=== PATIENT | female | born 1950 | race Hispanic/Latino ===

== ENCOUNTER → 2023-05-23 13:09 | Outpatient (REF) | payer OTHER, SELFPAY | LOC: RAD 13:09 | PROVIDERS: ATTENDING PHYSICIAN Internal Medicine Cardiovascular Disease; FAMILY PHYSICIAN Family Medicine | DX: Z87.891 Personal history of nicotine dependence (principal) | CPT/HCPCS: 71271 ==

== ENCOUNTER → 2023-06-07 09:38 | Outpatient (REF) | payer OTHER, SELFPAY | LOC: DHCBC MAIN 09:38 | PROVIDERS: ATTENDING PHYSICIAN Internal Medicine Cardiovascular Disease; FAMILY PHYSICIAN Family Medicine | DX: R06.09 Other forms of dyspnea (principal); I34.0 Nonrheumatic mitral (valve) insufficiency; I36.1 Nonrheumatic tricuspid (valve) insufficiency; Z87.891 Personal history of nicotine dependence | CPT/HCPCS: 93306 ==

== ENCOUNTER → 2023-06-13 10:47 | Outpatient (REF) | payer OTHER, SELFPAY | LOC: DHCBC/DCA 10:47 | PROVIDERS: ATTENDING PHYSICIAN Internal Medicine Cardiovascular Disease; FAMILY PHYSICIAN Family Medicine | DX: R06.09 Other forms of dyspnea (principal); Z87.891 Personal history of nicotine dependence; M79.605 Pain in left leg | CPT/HCPCS: 78452; 93017; A9500; J2785 ==

== ENCOUNTER → 2023-06-27 08:25 | Outpatient (REF) | payer OTHER, SELFPAY | LOC: RAD 08:25 | PROVIDERS: ATTENDING PHYSICIAN Internal Medicine Cardiovascular Disease; FAMILY PHYSICIAN Family Medicine | DX: Z87.891 Personal history of nicotine dependence (principal); R09.89 Other specified symptoms and signs involving the circulatory and respiratory systems | CPT/HCPCS: 76770 ==

== ENCOUNTER → 2023-08-01 11:11 | Outpatient (REF) | payer OTHER, SELFPAY | LOC: RAD 11:11 | PROVIDERS: ATTENDING PHYSICIAN Internal Medicine Cardiovascular Disease | DX: Z87.891 Personal history of nicotine dependence (principal); M79.605 Pain in left leg | CPT/HCPCS: 93922; 93925 ==

== ENCOUNTER 2023-08-30 16:02 | Emergency (ER) | payer OTHER, SELFPAY ==
[2023-08-30 16:07] VITALS: BP 107/81
[2023-08-30 17:30] VITALS: BMI 29.0
--- NOTE | 2023-08-30 18:55 | ED.GENMED ---
History of Present Illness
General
Chief Complaint: Back Pain
Source: patient and spouse
Exam Limitations: none
Time Seen by Provider: 08/30/23 18:45
Nursing documentation reviewed up to this point in time: agreed with
Travel History
Have you had any contact with someone who has COVID-19?: No
Do you have any symptoms of coronavirus? Fever > 100 degrees, chills, cough, shortness of breath, sore throat, loss of taste or smell, muscle aches, or headache?: No
History of Present Illness
History of Present Illness:
Patient is a 73-year-old female who complains of pain throughout her upper back shoulders clavicle area. She has had this off and on for the past several yrs and has not reports she has been given multiple multiple types of medication for pain
including baclofen gabapentin meloxicam without relief. She does not have a diagnosis. She has never seen rheumatology. She denies any fever or chills. . She denies any fever or chills. Denies any rash.
Review of Systems
Review of Systems
Allergies reviewed?: Yes
All Other Systems: ROS reviewed and negative except as documented in HPI and ROS
Constitutional: Reports no symptoms; Denies fever, fatigue or chills
EENT: Reports no symptoms
Respiratory: Reports no symptoms
Cardiac: Reports no symptoms
ABD/GI: Reports no symptoms
Musculoskeletal: Reports other (back pain b/l shoulder pain )
Skin: Reports no symptoms; Denies rash
Hematologic/Lymphatic: Reports no symptoms
Psychiatric: Reports no symptoms
Phy Exam
General Physical Exam
General Presentation: no apparent distress
General age: appears stated age
General Skin: warm and dry
General Habitus: elderly
General Mental: alert
General Hydration: appears well hydrated
Cardiovascular Exam
Cardiovascular Exam: regular rate/rhythm, no murmur and normal peripheral pulses
Pulmonary Exam
Pulmonary Exam: lungs clear and no respiratory distress
Neurological Exam
Neurological Exam: alert and oriented x3
Musculoskeletal Exam
Musculoskeletal Exam: full ROM and other (Normal inspection to back no bony midline tenderness but tender throughout the muscle region of trapezius, shoulders pain with range of motion of shoulders above head no swelling or erythema to joints)
Course
Orders/Labs/Results
Orders:
Orders
08/30/23 16:09
CR Cervical Spine 4 Or 5 Vw Urgent
Comment:
Reason For Exam: pain
Thoracic Spine 3 Views CR [CR Thoracic Spine 3 Views] Urgent
Comment:
Reason For Exam: pain
08/30/23 19:08
Ketorolac [Toradol] 15 mg IV NOW STA
diazePAM [Valium Injection] 5 mg IM NOW STA
08/30/23 19:36
CRP [C-Reactive Protein] Urgent
Complete Blood Count/With Diff Urgent
Comprehensive Metabolic Panel Urgent
Sed Rate [Erythrocyte Sed Rate] Urgent
Abnormal Lab Results
08/30/23
19:36
RBC 3.91 L 10^6/uL
(4.20-5.40)
Hct 35.8 L %
(37.0-47.0)
MCH 31.7 H pg
(27.0-31.0)
Absolute Monos (auto) 0.8 H 10^3/uL
(0.1-0.6)
ESR 41 H mm/hour
(0-20)
BUN 20 H mg/dl
(7-17)
Glucose 114 H mg/dl
(70-99)
Alkaline Phosphatase 129 H U/L
(38-126)
C-Reactive Protein 17.10 H mg/L
(0.0-10.00)
08/30/23 19:36
08/30/23 19:36
Vital Signs
Initial and Last Documented VS:
Initial Vital Signs
Temp Pulse Resp BP Pulse Ox
99.6 F 69 18 107/81 97
08/30/23 16:07 08/30/23 16:07 08/30/23 16:07 08/30/23 16:07 08/30/23 16:07
Last Documented Vital Signs
Temp Pulse Resp BP Pulse Ox
99.6 F 77 18 156/68 94
08/30/23 16:07 08/30/23 21:47 08/30/23 16:07 08/30/23 21:47 08/30/23 21:47
MDM/Problems Addressed
Differential Diagnosis Includes:
not limited to: muscle/joint pain
MDM/Problems Addressed:
Patient is a 73-year-old female complains of pain throughout her body mostly in her upper back shoulders. She has been seen at times by her family doctor for this and is on baclofen and gabapentin meloxicam without relief. Patient denies any fever
or chills. She is nontoxic but she is uncomfortable there is no obvious joint swelling or erythema she has good range of motion patient was given IM Valium and IV Toradol feeling much better. Patient has a mildly elevated C-reactive protein of 17
and a sed rate of 41. case reviewed with ED physician possible polymyalgia rheumatica or other rheumatological condition she will need follow-up with rheumatology will DC on short course of steroids.
*Critical Care Note
Total Time (30-74mins, 75-104mins- exclusive of procedures): Not Applicable
ED Attending Note
-
Portions of this chart may have been created with voice recognition software.� Occasional wrong word or��sound alike� substitutions may have occurred due to the inherent limitations of voice recognition software.
Discharge Plan
Departure
Patient Disposition: Home (Routine Discharge)
Date of Disposition: 08/30/23
Time of Disposition: 21:55
Patient with high blood pressure during this ER visit?: Yes
Condition: Fair
Covid-19: Not Applicable
Discharge Problem:
muscle and joint pain
Instructions: Muscle and bone pain - Discharge instructions
Prescriptions:
New
prednisone 20 mg tablet
40 mg PO DAILY Qty: 10 0RF
No Action
meloxicam 15 mg Tablet
15 mg PO DAILY
omeprazole 40 mg Capsule,Delayed Release(Dr/Ec)
40 mg PO DAILY
gabapentin 800 mg Tablet
800 mg PO TID
baclofen 10 mg Tablet
10 mg PO BID
ezetimibe 10 mg Tablet
10 mg PO DAILY
duloxetine 30 mg Capsule,Delayed Release(Dr/Ec)
30 mg PO BID
Referrals:
Татьяна Okeefe MD [Consulting Staff] -
Luis Reyes DO [Family Provider] -
Activity Restrictions/Additional Instructions:
As discussed a prescription for steroids was sent to patient's pharmacy take as directed.
Follow-up with family doctor the next 1 -2 days as well as rheumatology. Please call tomorrow to make an appointment soon as possible return if any worsening of symptoms
Interventions
Interventions:
*Risk Screen - Suicide Last Done: 08/30/23 16:07
*General Assessment Last Done: 08/30/23 16:07
*Neglect/Abuse Screening Last Done: 08/30/23 16:07
ED- Fall Risk Assessment Last Done: 08/30/23 17:30
*ED COVID-19 Vaccine History Last Done: 08/30/23 16:07
ED-Musculoskeletal Assessment Last Done: 08/30/23 17:30
ED-Skin Assessment Last Done: 08/30/23 19:02
Discharge Date and Time
Print Language: SINHALA
[2023-08-30] MEDS: TORADOL 15 MG IV (19:35)
[2023-08-30] MEDS: VALIUM INJECTION 5 MG IM (19:35)
[2023-08-30 19:43] LABS: % Basophils 0.3 % (0-2); % Eosinophils 1.2 % (0-6); % Immature Granulocytes 0.3 % (0-0.5); % Lymphocytes 34.4 % (20.5-51.1); % Monocytes 8.4 % (1.7-9.3); % Neutrophils 55.4 % (42.2-75.2); Absolute Eosinophils 0.1 10^3/uL (0-0.7); Absolute Lymphocytes 3.2 10^3/uL (1.2-3.4); Absolute Monocytes 0.8 10^3/uL (0.1-0.6); Absolute Neutrophils 5.1 10^3/uL (1.4-6.5); Hematocrit 35.8 % (37.0-47.0); Hemoglobin 12.4 g/dL (12.0-16.0); Mean Corp Hgb Conc. 34.6 g/dL (33.0-37.0); Mean Corpuscular Hgb 31.7 pg (27.0-31.0); Mean Corpuscular Volume 91.6 fL (81.0-99.0); Nucleated Red Blood Cells % 0 %; Platelet Count 188 10^3/uL (130-400); Red Blood Cell Count 3.91 10^6/uL (4.20-5.40); Red Cell Dist. Width 12.5 % (11.5-14.5); White Blood Cell Count 9.2 10^3/uL (4.8-10.8)
[2023-08-30 19:55] LABS: ALT (SGPT) 18 U/L (0-35); AST (SGOT) 25 U/L (14-36); Albumin 4.5 g/dl (3.5-5.0); Alkaline Phosphatase 129 U/L (38-126); Blood Urea Nitrogen 20 mg/dl (7-17); Calcium 9.6 mg/dl (8.4-10.2); Carbon Dioxide 28 mmol/L (22-30); Chloride 101 mmol/L (98-107); Estimated Creatinine Clearance 73 ml/min; Glucose 114 mg/dl (70-99); Potassium 4.3 mmol/L (3.5-5.1); Sodium 138 mmol/L (135-145); Total Bilirubin 0.8 mg/dl (0.2-1.3); Total Protein 8.1 g/dl (6.3-8.2); eGFR > 60.00
[2023-08-30 20:07] LABS: Erythrocyte Sed Rate 41 mm/hour (0-20)
[2023-08-30 21:47] VITALS: BP 156/68
== END 2023-08-30 22:09 | disposition home or self-care (01) ==
LOC: EMR 16:02
PROVIDERS: Nurse Practitioner; EMERGENCY PHYSICIAN Emergency Medicine; FAMILY PHYSICIAN Family Medicine
DX: M25.50 Pain in unspecified joint (principal)
CPT/HCPCS: 99283; 96374; 96372; 72050; 72072; 80053; 85025; 85652; 86140

== ENCOUNTER → 2023-11-28 14:39 | Outpatient (REF) | payer OTHER, SELFPAY | LOC: RAD 14:39 | PROVIDERS: ATTENDING PHYSICIAN Internal Medicine Critical Care Medicine; FAMILY PHYSICIAN Family Medicine | DX: R91.8 Other nonspecific abnormal finding of lung field (principal) | CPT/HCPCS: 71250 ==

== ENCOUNTER 2024-06-02 10:37 | Emergency (ER) | payer OTHER, SELFPAY ==
[2024-06-02] VITALS (7 sets, daily range): BP systolic 102–145; BP diastolic 58–97; BMI 30.6
[2024-06-02 13:08] LABS: % Basophils 0.2 % (0-2); % Eosinophils 2.1 % (0-6); % Immature Granulocytes 0.2 % (0-0.5); % Lymphocytes 40.7 % (20.5-51.1); % Monocytes 9.4 % (1.7-9.3); % Neutrophils 47.4 % (42.2-75.2); Absolute Eosinophils 0.1 10^3/uL (0-0.7); Absolute Lymphocytes 2.3 10^3/uL (1.2-3.4); Absolute Monocytes 0.5 10^3/uL (0.1-0.6); Absolute Neutrophils 2.7 10^3/uL (1.4-6.5); Hemoglobin 11.6 g/dL (12.0-16.0); Mean Corp Hgb Conc. 35.2 g/dL (33.0-37.0); Mean Corpuscular Hgb 33.2 pg (27.0-31.0); Mean Corpuscular Volume 94.6 fL (81.0-99.0); Mean Platelet Volume 10.3 fL (7.4-10.4); Nucleated Red Blood Cells % 0 %; Platelet Count 164 10^3/uL (130-400); Red Blood Cell Count 3.49 10^6/uL (4.20-5.40); Red Cell Dist. Width 12.6 % (11.5-14.5); White Blood Cell Count 5.7 10^3/uL (4.8-10.8)
--- NOTE | 2024-06-02 13:08 | ED.GENMED ---
History of Present Illness
General
Chief Complaint: Abdominal Symptoms
Source: patient
Time Seen by Provider: 06/02/24 13:00
History of Present Illness
History of Present Illness:
74-year-old female presents complaining of worsening pain to the right side of the abdomen for the past several days worse with eating. Prior history of cholecystectomy. Pain occasionally radiates to the back. No chest pain. No fever. There has
been nausea with diarrhea. No other complaints.
Phy Exam
Physical Exam
Physical Exam:
General: Well appearing female NAD
HEENT: NC/AT
Heart: RRR, no murmurs
lungs: CTA
Abd: soft, tender to right lower and mid abdomen. No gaurding. Negative rebound
Ext: no cyanosis or edema
Skin: warm, no rash.
Course
Orders/Labs/Results
Orders:
Orders
06/02/24 12:48
CMP [Comprehensive Metabolic Panel] Urgent
Complete Blood Count/With Diff Urgent
Lipase Urgent
Urinalysis Reflex To Culture Urgent
Date Specimen was Collected: 06/02/24
Time Specimen was Collected: 12:46
Urine Microscopic Reflex Cult Urgent
06/02/24 13:07
0.9% Sodium Chloride 1000 ml [Nss] 1,000 ml IV BOLUS
Ketorolac [Toradol] 15 mg IV NOW STA
Ondansetron Injectable [Zofran] 4 mg IV NOW STA
06/02/24 13:08
CT Abd/pelvis W Iv Cont Urgent
Comment:
Reason For Exam: right mid abdominal pain
06/02/24 13:23
Diphenhydramine [Benadryl] 50 mg IV NOW STA
Hydrocortisone Sod Succinate [Solu-Cortef] 200 mg IV NOW STA
06/02/24 13:40
COVID-19 Antigen Urgent
Source: Nasal Swab
Influenza A+B Rapid Molecular Urgent
JACOBO Source: Nasal Swab
Specimen Description:
Abnormal Lab Results
06/02/24
12:48
RBC 3.49 L 10^6/uL
(4.20-5.40)
Hgb 11.6 L g/dL
(12.0-16.0)
Hct 33.0 L %
(37.0-47.0)
MCH 33.2 H pg
(27.0-31.0)
Monocytes % 9.4 H %
(1.7-9.3)
BUN 19 H mg/dl
(7-17)
Glucose 106 H mg/dl
(70-99)
Urine Bacteria (Reflex) Few A
(Negative)
Urine Albumin (Reflex) 1+ A
(Neg - Trace)
06/02/24 12:48
06/02/24 12:48
Vital Signs
Initial and Last Documented VS:
Initial Vital Signs
Temp Pulse Resp BP Pulse Ox
97.8 F 72 16 129/65 99
06/02/24 10:47 06/02/24 10:47 06/02/24 10:47 06/02/24 10:47 06/02/24 10:47
Last Documented Vital Signs
Temp Pulse Resp BP Pulse Ox
97.8 F 77 16 137/75 93
06/02/24 10:47 06/02/24 15:38 06/02/24 15:38 06/02/24 16:00 06/02/24 16:45
MDM/Problems Addressed
Differential Diagnosis Includes:
Abdominal pain, n,v,d. Question viral illness versus diverticulitis versus appendicitis. Prior history of cholecystectomy. She is check urinalysis for any UTI or hematuria to suggest renal colic
Treat symptoms with Toradol Zofran fluids
*Critical Care Note
Total Time (30-74mins, 75-104mins- exclusive of procedures): Not Applicable
Update Note
Update Note:
CT of the abdomen was negative for acute finding. Urinalysis without sign of infection. Patient appears much better after treatment here. Suspect possible underlying viral issue given negative CAT scan. Recommend Zofran at home and fluids. Does
have a GI doctor advise she follow-up with the symptoms persist
ED Attending Note
-
Portions of this chart may have been created with voice recognition software.� Occasional wrong word or��sound alike� substitutions may have occurred due to the inherent limitations of voice recognition software.
Discharge Plan
Departure
Patient Disposition: Home (Routine Discharge)
Date of Disposition: 06/02/24
Time of Disposition: 17:07
Patient with high blood pressure during this ER visit?: No
Discharge Problem:
Abdominal pain
Instructions: Abdominal Pain
Prescriptions:
New
ondansetron 4 mg tablet,disintegrating
4 mg PO Q8H PRN (Reason: nausea and vomiting) Qty: 10 0RF
No Action
meloxicam 15 mg Tablet
15 mg PO DAILY
omeprazole 40 mg Capsule,Delayed Release(Dr/Ec)
40 mg PO DAILY
gabapentin 800 mg Tablet
800 mg PO TID
baclofen 10 mg Tablet
10 mg PO BID
ezetimibe 10 mg Tablet
10 mg PO DAILY
duloxetine 30 mg Capsule,Delayed Release(Dr/Ec)
30 mg PO BID
prednisone 20 mg tablet
40 mg PO DAILY Qty: 10 0RF
Referrals:
Luis Reyes, DO [Family Provider] -
Activity Restrictions/Additional Instructions:
Drink plenty clear liquids. Use Zofran if needed for nausea peer return here for worsening symptoms otherwise follow-up with your GI doctor
Interventions
Interventions:
*Risk Screen - Suicide Last Done: 06/02/24 12:27
*General Assessment Last Done: 06/02/24 15:38
*Neglect/Abuse Screening Last Done: 06/02/24 12:27
ED- Fall Risk Assessment Last Done: 06/02/24 12:47
*ED COVID-19 Vaccine History Last Done: 06/02/24 12:38
ZA-Oprrcd-Huvnoqqaij Assessment Last Done: 06/02/24 12:40
Discharge Date and Time
Print Language: SPANISH
[2024-06-02 13:14] LABS: Urine Albumin 1+ (Neg - Trace); Urine Bilirubin Negative (Negative); Urine Character Clear (Clear); Urine Color Yellow; Urine Glucose Negative (Negative); Urine Ketone Negative (Negative); Urine Leukocyte Negative (Negative); Urine Nitrite Negative (Negative); Urine Occult Blood Negative (Negative); Urine Specific Gravity 1.015 (<1.030); Urine Urobilinogen Negative (Neg - 1+)
[2024-06-02 13:23] LABS: ALT (SGPT) 21 U/L (0-35); AST (SGOT) 21 U/L (14-36); Albumin 4.2 g/dl (3.5-5.0); Alkaline Phosphatase 119 U/L (38-126); Blood Urea Nitrogen 19 mg/dl (7-17); Calcium 8.7 mg/dl (8.4-10.2); Carbon Dioxide 27 mmol/L (22-30); Chloride 104 mmol/L (98-107); Estimated Creatinine Clearance 60 ml/min; Glucose 106 mg/dl (70-99); Lipase 27 U/L (23-300); Sodium 140 mmol/L (135-145); Total Bilirubin 0.8 mg/dl (0.2-1.3); Total Protein 6.8 g/dl (6.3-8.2); eGFR > 60.00
[2024-06-02] MEDS: TORADOL 15 MG IV (13:27)
[2024-06-02] MEDS: ZOFRAN 4 MG IV (13:27)
[2024-06-02] MEDS: NSS 1000 IV (13:28)
[2024-06-02 13:29] LABS: Urine Bacteria Few (Negative); Urine Red Blood Cell 0-2 /HPF (0-2); Urine Squamous Cell 0-2 /LPF (Few); Urine White Cell 0-2 /HPF (0-5)
[2024-06-02] MEDS: SOLU-CORTEF 200 MG IV (13:36)
[2024-06-02] MEDS: BENADRYL 50 MG IV (13:36)
[2024-06-02 14:16] LABS: COVID-19 Antigen Negative (Negative)
== END 2024-06-02 17:42 | disposition home or self-care (01) ==
LOC: EMR 10:37
PROVIDERS: Physician Assistant; EMERGENCY PHYSICIAN Student in an Organized Health Care Education/Training Program; FAMILY PHYSICIAN Family Medicine
DX: R10.9 Unspecified abdominal pain (principal); Z11.52 Encounter for screening for COVID-19
CPT/HCPCS: 99285; 96374; 96375 ×3; 96361 ×2; 74177; 80053; 81003; 81015; 83690; 85025; 87502; 87811; Q9967

== ENCOUNTER → 2024-11-05 15:08 | Outpatient (REF) | payer OTHER, SELFPAY | LOC: HWRAD 15:08 | PROVIDERS: ATTENDING PHYSICIAN Internal Medicine Critical Care Medicine; FAMILY PHYSICIAN Family Medicine | DX: R91.8 Other nonspecific abnormal finding of lung field (principal) | CPT/HCPCS: 71250 ==